=== PATIENT | male | born 1955 | race Caucasian/White ===

== ENCOUNTER → 2017-02-19 | Outpatient (CLI) | payer BC ==
[2017-02-19 05:23] LABS: WHITE BLOOD COUNT 6.6 K/UL (4.5-11.0)
[2017-02-19 05:41] LABS: BUN/CREATININE RATIO 8 (0-10)
== END ==
LOC: LAB 04:52
PROVIDERS: Physician Assistant
DX: E78.5 Hyperlipidemia, unspecified (principal); M19.90 Unspecified osteoarthritis, unspecified site
CPT/HCPCS: 36415; 80053; 80061; 85025

== ENCOUNTER → 2020-10-11 | Outpatient (CLI) | payer OTHER | LOC: LAB 10:29 | DX: Z12.5 Encounter for screening for malignant neoplasm of prostate (principal); R35.1 Nocturia | CPT/HCPCS: 36415; G0103 ==

== ENCOUNTER → 2020-11-02 | Outpatient (CLI) | payer OTHER ==
[2020-11-02 10:46] LABS: HEMOGLOBIN 16.3 gm/dl (14.0-17.5); RED BLOOD COUNT 4.95 M/UL (4.20-5.50); WHITE BLOOD COUNT 5.4 K/UL (4.5-11.0)
== END ==
LOC: LAB 10:06
PROVIDERS: Nurse Practitioner Family
DX: M79.643 Pain in unspecified hand (principal); M19.90 Unspecified osteoarthritis, unspecified site; G89.29 Other chronic pain
CPT/HCPCS: 36415; 80053; 85025

== ENCOUNTER → 2020-12-29 | Outpatient (CLI) | payer OTHER ==
[2020-12-29 08:45] LABS: HEMOGLOBIN 16.2 gm/dl (14.0-17.5); RED BLOOD COUNT 4.98 M/UL (4.20-5.50)
[2020-12-29 09:32] LABS: BUN/CREATININE RATIO 15 (0-10)
== END ==
LOC: LAB 07:47
PROVIDERS: Nurse Practitioner Family
DX: E78.5 Hyperlipidemia, unspecified (principal); E55.9 Vitamin D deficiency, unspecified; D51.0 Vitamin B12 deficiency anemia due to intrinsic factor deficiency; Z79.899 Other long term (current) drug therapy
CPT/HCPCS: 36415; 80053; 80061; 82607; 84439; 84443; 85025

== ENCOUNTER → 2022-04-02 | Outpatient (CLI) | payer OTHER ==
[2022-04-02 07:55] LABS: HEMOGLOBIN 16.7 gm/dl (14.0-17.5); RED BLOOD COUNT 5.05 M/UL (4.20-5.50); WHITE BLOOD COUNT 5.8 K/UL (4.5-11.0)
[2022-04-02 08:10] LABS: BUN/CREATININE RATIO 13 (0-10)
== END ==
LOC: LAB 07:30
PROVIDERS: Nurse Practitioner Family
DX: E55.9 Vitamin D deficiency, unspecified (principal); N18.9 Chronic kidney disease, unspecified; Z79.899 Other long term (current) drug therapy; E78.5 Hyperlipidemia, unspecified
CPT/HCPCS: 36415; 80053; 80061; 82607; 84439; 84443; 85025